=== PATIENT | male | born 1945 | race Two or more races ===

== ENCOUNTER 2021-05-16 10:29 | Observation (INO) | payer MEDICARE, MEDICAID ==
[~2021-05-16] VITALS: Ht 170.2 cm; Wt 93.5 kg
--- NOTE | 2021-05-16 10:45 | NUR ---
BIB EMS FROM [facility] AFTER PERIOD OF FEELING DIZZINESS IN THE SHOWER. PT STATES A FALL TODAY WITH NO INJURY. PT STATES A FALL 1 MONTH AGO WITH INJURY TO LEFT EYE. PT HAS LARGE HEMATOMA ABOVE EYE THAT HE STATES HAS NOT GOT ANY SMALLER. PT STATES BAZAN X 1 MONTH. PT HX OF DM, A FIB AND HTN AND NON-COMPLIENT WITH ALL MEDICATIONS.
[2021-05-16] MEDS ORDERED: SODIUM CHLORIDE FLUSH 10ML SYR IVF ONE (11:00)
[2021-05-16] MEDS ORDERED: SODIUM CHLORIDE 0.9% 1,000ML IVBOLUS ONE (11:00)
--- NOTE | 2021-05-16 11:08 | NUR ---
PT TO CT NOW
[2021-05-16 11:21] LABS: BASOPHILS % (AUTO) 1 % (0-1); EOSINOPHILS % (AUTO) 2 % (1-7); LYMPHOCYTES % (AUTO) 14 % (22-44); MEAN CORPUSCULAR HEMOGLOBIN 33.2 pg (27.5-34.5); MEAN CORPUSCULAR HGB CONC 34.6 g/dL (33.2-36.2); MEAN PLATELET VOLUME 8.9 fL (7.4-10.4); MONOCYTES % (AUTO) 6 % (2-9); NEUTROPHILS % (AUTO) 77 % (42-75); PLATELET COUNT 310 x10^3/uL (130-400); RED BLOOD COUNT 4.86 x10^6/uL (4.38-5.82); RED CELL DISTRIBUTION WIDTH 13.3 % (9.4-14.8)
[2021-05-16 11:27] LABS: ALANINE AMINOTRANSFERASE 20 U/L (12-78); ALBUMIN 3.5 g/dL (3.4-5.0); ANION GAP 11 mmol/L (5-15); CALCIUM 9.1 mg/dL (8.5-10.1); CHLORIDE 102 mmol/L (98-107); CREATININE 2.35 mg/dL (0.7-1.3)
[2021-05-16 11:29] LABS: ALKALINE PHOSPHATASE 63 U/L (45-117); TOTAL PROTEIN 8.6 g/dL (6.4-8.2)
--- NOTE | 2021-05-16 12:38 | NUR ---
MD AT BEDSIDE TO DISCUSS POC. PT AGREEABLE TO ADMIT
[2021-05-16 13:24] VITALS: BP 149/98
[2021-05-16] MEDS ORDERED: POLYETHYLENE GLYCOL 17 GM PACKET PO PRN (14:30)
[2021-05-16] MEDS ORDERED: ONDANSETRON ODT 4 MG PO PRN (14:30)
[2021-05-16] MEDS ORDERED: ONDANSETRON 2MG/ML, 2ML IVPush PRN (14:30)
[2021-05-16] MEDS: HEPARIN 5,000 UNITS/ML, 1ML SQ SCH ×2 (14:57→23:03)
[2021-05-16] MEDS: LACTATED RINGERS 1,000 ML IV SCH ×2 (14:57→23:03)
[2021-05-16 15:27] LABS: MICROSCOPIC INDICATED
[2021-05-16] MEDS: INSULIN LISPRO 100 UNITS/ML, PEN SQ-INSULIN SCH ×2 (16:43→20:48)
[2021-05-16] MEDS: ACETAMINOPHEN 325 MG TABLET PO PRN (16:43)
[2021-05-16 18:30] VITALS: BP 123/77
[2021-05-17 00:26] VITALS: BP 120/78
[2021-05-17 05:12] LABS: BASOPHILS % (AUTO) 1 % (0-1); EOSINOPHILS % (AUTO) 4 % (1-7); LYMPHOCYTES % (AUTO) 20 % (22-44); MEAN CORPUSCULAR HEMOGLOBIN 32.8 pg (27.5-34.5); MEAN CORPUSCULAR HGB CONC 34.2 g/dL (33.2-36.2); MEAN PLATELET VOLUME 8.7 fL (7.4-10.4); MONOCYTES % (AUTO) 8 % (2-9); NEUTROPHILS % (AUTO) 68 % (42-75); PLATELET COUNT 260 x10^3/uL (130-400); RED BLOOD COUNT 4.26 x10^6/uL (4.38-5.82); RED CELL DISTRIBUTION WIDTH 13.5 % (9.4-14.8)
[2021-05-17 05:22] LABS: ALANINE AMINOTRANSFERASE 18 U/L (12-78); ALBUMIN 2.7 g/dL (3.4-5.0); ANION GAP 8 mmol/L (5-15); CALCIUM 8.4 mg/dL (8.5-10.1); CHLORIDE 108 mmol/L (98-107); CREATININE 1.75 mg/dL (0.7-1.3)
[2021-05-17 05:33] LABS: ALKALINE PHOSPHATASE 49 U/L (45-117); BILIRUBIN,TOTAL 0.5 mg/dL (0.2-1.0); TOTAL PROTEIN 6.8 g/dL (6.4-8.2)
[2021-05-17] MEDS: HEPARIN 5,000 UNITS/ML, 1ML SQ SCH ×2 (06:21→15:05)
[2021-05-17] MEDS: INSULIN LISPRO 100 UNITS/ML, PEN SQ-INSULIN SCH ×3 (07:00→16:00)
[2021-05-17 08:15] VITALS: BP 144/90
[2021-05-17 08:19] VITALS: BP 137/93
[2021-05-17 08:24] VITALS: BP 126/78
[2021-05-17] MEDS ORDERED: SENNA/DOCUSATE TABLET PO SCH (09:00)
[2021-05-17] MEDS: ACETAMINOPHEN 325 MG TABLET PO PRN (09:27)
[2021-05-17] MEDS ORDERED: CEPH-376 PO (15:22)
[2021-05-17 15:28] VITALS: BP 157/86
[2021-05-17] MEDS ORDERED: APIX2.5T PO (15:28)
[2021-05-17] MEDS ORDERED: CEFTRIAXONE 1,000 MG in DEXTROSE 5% 50 ML IVPB ONE (15:30)
== END 2021-05-18 03:11 | disposition home or self-care (01) ==
LOC: ED 11:27 → 4WST 12:22 → INTOOBSV 12:22
PROVIDERS: ADMIT Emergency Medicine; ATTEND Emergency Medicine
DX: R55 Syncope and collapse (principal); R94.4 Abnormal results of kidney function studies; I12.9 Hypertensive chronic kidney disease with stage 1 through stage 4 chronic kidney disease, or unspecified chronic kidney disease; E11.22 Type 2 diabetes mellitus with diabetic chronic kidney disease; N18.9 Chronic kidney disease, unspecified; E86.1 Hypovolemia; I95.9 Hypotension, unspecified; I48.91 Unspecified atrial fibrillation; N39.0 Urinary tract infection, site not specified; B95.4 Other streptococcus as the cause of diseases classified elsewhere; D68.69 Other thrombophilia; N17.9 Acute kidney failure, unspecified; S00.03XA Contusion of scalp, initial encounter; W18.30XA Fall on same level, unspecified, initial encounter; Y93.89 Activity, other specified; Y92.89 Other specified places as the place of occurrence of the external cause; Z59.0 Homelessness; Z79.84 Long term (current) use of oral hypoglycemic drugs; Z79.01 Long term (current) use of anticoagulants; Z79.82 Long term (current) use of aspirin; Z87.440 Personal history of urinary (tract) infections; Z79.899 Other long term (current) drug therapy
CPT/HCPCS: 36415; 70450; 71045; 80053; 81001; 82962; 83036; 84443; 85025; 87086; 87147; 93005; 93306; 96361; 96365; 96372; 99285; G0378; J0696; J1644; J1815; J7030; J7120